=== PATIENT | female | born 2000 | race Two or more races ===

== ENCOUNTER 2018-10-17 17:57 | Emergency (ER) | payer OTHER ==
[~2018-10-17] VITALS: Ht 157.5 cm; Wt 61.2 kg
== END 2018-10-17 20:11 | disposition home or self-care (01) ==
LOC: ER 17:57
DX: R51 Headache (principal)

== ENCOUNTER 2018-12-14 19:27 | Outpatient (CLI) | payer OTHER ==
[2018-12-15] MEDS ORDERED: DUI500 PO (17:12)
== END 2018-12-15 18:23 | disposition home or self-care (01) ==
LOC: OBS/DEL 19:27
DX: O23.43 Unspecified infection of urinary tract in pregnancy, third trimester (principal); O26.892 Other specified pregnancy related conditions, second trimester; N20.0 Calculus of kidney; O35.8XX0 Maternal care for other (suspected) fetal abnormality and damage, not applicable or unspecified; Z34.02 Encounter for supervision of normal first pregnancy, second trimester

== ENCOUNTER → 2018-12-28 | Emergency (ER) | payer OTHER ==
[~2018-12-28] VITALS: Ht 154.9 cm; Wt 62.1 kg
[~2018-12-28] MED LIST: DUI500 PO
== END | disposition left against medical advice (07) ==
LOC: ER 01:31
DX: Z53.20 Procedure and treatment not carried out because of patient's decision for unspecified reasons (principal)

== ENCOUNTER 2019-04-02 20:19 | Outpatient (CLI) | payer OTHER ==
[2019-04-02] MEDS ORDERED: PRENATAL TABLE1 EAC1 PO (20:31)
[2019-04-02] MEDS ORDERED: FERROCHEL PO (20:32)
[2019-04-02] MEDS ORDERED: FOLIC ACID1 MG PO (20:33)
== END 2019-04-03 12:49 | disposition home or self-care (01) ==
LOC: OBS/DEL 20:19
DX: O47.03 False labor before 37 completed weeks of gestation, third trimester (principal)

== ENCOUNTER 2019-04-25 05:04 | Inpatient (IN) | payer OTHER ==
[~2019-04-25] VITALS: Ht 154.9 cm; Wt 67.6 kg
[~2019-04-25 05:04] MED LIST changes: +FERROCHEL PO; +FOLIC ACID1 MG PO; +PRENATAL TABLE1 EAC1 PO
== END 2019-04-27 18:51 | disposition home or self-care (01) | DRG 807 ==
LOC: LDR 05:04 → OB/GYN 05:04
PROVIDERS: ADMIT Obstetrics & Gynecology
PROC: 10E0XZZ Delivery of Products of Conception, External Approach (ICD-10-PCS; principal; 2019-04-25)
PROC: 3E033VJ Introduction of Other Hormone into Peripheral Vein, Percutaneous Approach (ICD-10-PCS; 2019-04-25)
PROC: 4A1HXCZ Monitoring of Products of Conception, Cardiac Rate, External Approach (ICD-10-PCS; 2019-04-25)
DX: O80 Encounter for full-term uncomplicated delivery (principal); Z37.0 Single live birth; Z3A.39 39 weeks gestation of pregnancy